=== PATIENT | female | born 1955 | race Caucasian/White ===

== ENCOUNTER 2019-04-08 11:44 | Day surgery (SDC) | payer MEDICARE, BC ==
[~2019-04-08] VITALS: Ht 152.4 cm; Wt 62.2 kg
[~2019-04-08 11:44] MED LIST: CIPR250
== END 2019-04-08 14:40 | disposition home or self-care (01) ==
LOC: ORSCSDS 11:44
PROVIDERS: Surgery
PROC: 0DBP8ZX Excision of Rectum, Via Natural or Artificial Opening Endoscopic, Diagnostic (ICD-10-PCS; principal; 2019-04-08 13:00)
PROC: 0DBL8ZX Excision of Transverse Colon, Via Natural or Artificial Opening Endoscopic, Diagnostic (ICD-10-PCS; principal; 2019-04-08 13:00)
DX: Z12.11 Encounter for screening for malignant neoplasm of colon (principal); K63.5 Polyp of colon; K62.6 Ulcer of anus and rectum; K64.8 Other hemorrhoids; I10 Essential (primary) hypertension; G82.20 Paraplegia, unspecified
CPT/HCPCS: 88305; J2704; J7120